=== PATIENT | male | born 1980 | race Caucasian/White ===

== ENCOUNTER 2017-02-15 18:20 | Emergency (ER) | payer OTHER ==
[~2017-02-15 18:20] MED LIST: CLINDAMYCIN HC300 MG PO; TRAMADOL HCL50 MG PO; TYLENOL 325MG325 MG PO
== END 2017-02-15 21:40 | disposition left against medical advice (07) ==
LOC: ER1 18:20
DX: S46.811A Strain of other muscles, fascia and tendons at shoulder and upper arm level, right arm, initial encounter (principal); W01.0XXA Fall on same level from slipping, tripping and stumbling without subsequent striking against object, initial encounter; Y92.009 Unspecified place in unspecified non-institutional (private) residence as the place of occurrence of the external cause
CPT/HCPCS: 73030; 99283

== ENCOUNTER 2021-06-09 22:48 | Emergency (ER) | payer MEDICARE ==
[~2021-06-09 22:48] MED LIST changes: +ELIMITE 5% CREA60 GM TOP; +NAPROSYN500 MG PO; +PREDNISONE10 MG PO; +VISTARIL25 MG PO
[2021-06-10 02:15] LABS: HEMOGLOBIN 14.4 gm/dl (14.0-17.5); RED BLOOD COUNT 4.9 M/UL (4.20-5.50); WHITE BLOOD COUNT 14.1 K/UL (4.5-11.0)
[2021-06-10 02:41] LABS: BUN/CREATININE RATIO 16 (0-10)
[2021-06-10] MEDS ORDERED: CEPHALEXIN500 M1 PO (13:51)
== END 2021-06-10 04:13 | disposition home or self-care (01) ==
LOC: ER1 22:48
PROVIDERS: Emergency Medicine
DX: S40.252A Superficial foreign body of left shoulder, initial encounter (principal); W45.8XXA Other foreign body or object entering through skin, initial encounter
CPT/HCPCS: 73080; 80048; 85025; 96365; 96366; 99284

== ENCOUNTER 2021-06-10 12:21 | Emergency (ER) | payer MEDICARE ==
[2021-06-10] MEDS ORDERED: CEPHALEXIN500 M1 PO (13:51)
== END 2021-06-10 14:00 | disposition home or self-care (01) ==
LOC: ER1 12:21
DX: S50.352A Superficial foreign body of left elbow, initial encounter (principal); Z23 Encounter for immunization; F17.220 Nicotine dependence, chewing tobacco, uncomplicated
CPT/HCPCS: 90471; 90715; 99283